=== PATIENT | female | born 1985 | race Caucasian/White ===

== ENCOUNTER 2019-08-07 11:10 | Outpatient (CLI) | payer OTHER, SELFPAY ==
--- NOTE | ~2019-08-07 | XR_ITS ---
XR scoliosis survey DATE: 08/07/2019 11:53 INDICATION: Scoliosis deformity of spine TECHNIQUE: Standing AP and lateral views of the spine; breast chauhan. COMPARISON: None FINDINGS: There is 10 degrees levoscoliosis measured from T8 to L1. There is 10 degrees dextroscoliosis measured from L1 to L5. The right femoral head is 4 mm higher than the left femoral head. No fracture or dislocation or bone destruction. The thoracic and lumbar pedicles are intact. The sacr oiliac joints appear normal. IMPRESSION: There is 10 degrees levoscoliosis measured from T8 to L1. There is 10 degrees dextroscoliosis measured from L1 to L5. The right femoral head is 4 mm higher than the left femoral head. Reviewed, dictated and finalized at [facility]. Reviewed, dictated and finalized at location [facility].
== END 2019-08-07 11:11 | disposition home or self-care (01) ==
LOC: ANHIMG 11:18
PROVIDERS: PCP Physician Assistant; Visit Provider Physician Assistant
DX: M41.84 Other forms of scoliosis, thoracic region (principal); M41.86 Other forms of scoliosis, lumbar region; M21.751 Unequal limb length (acquired), right femur
CPT/HCPCS: 72082

== ENCOUNTER 2020-11-10 21:21 | Emergency (ER) | payer OTHER, SELFPAY ==
--- NOTE | ~2020-11-10 | US_ITS ---
US OB <= 14 weeks fetus DATE: 11/10/2020 23:58 INDICATION: Abdominal pain in gravid patient TECHNIQUE: Real-time imaging and Doppler analysis COMPARISON: None FINDINGS: The uterus measures 9.3 cm height, 5. Centimeters anteroposterior and 6.4 cm transverse dim ension. Live jesus intrauterine gestation, with normal-appearing gestational sac with normal surrounding hyperechogenicity consistent with decidual reaction. Normal amount of amniotic fluid. Yolk sac and fe caleb pole are detected. heart rate of 141 bpm. Mean sac diameter 2.23 cm, consistent with 7 weeks estimated gestational age. [place]-rump length of 1.37 cm is consistent with 7 weeks 4 days +/- 5 days estimated gestational age w ith ISMA of 06/25/2021. The left ovary is not visualized. The right ovary measures 3.0 x 1.9 x 1.9 cm, with an approximately 1.6 cm cyst. No free fluid in the pelvis. IMPRESSION: Normal intrauterine gestation Estimated gestational age of 7 weeks 4 days +/- 5 days; ISMA is 06/25/2021 Reviewed, dictated and finalized at [facility]. Reviewed, dictated and finalized at location [facility].
[2020-11-10 21:26] VITALS: BP 123/80; PULSE 98; RESP 16; TEMP 36.8; O2SAT 98
--- NOTE | 2020-11-10 21:58 | ED.FEMALEGU ---
HPI - Female Genitourinary General Chief complaint: Urogenital-Female Stated complaint: ovary pain, needs test Time Seen by Provider: 11/10/20 21:36 Source: patient and RN notes reviewed Mode of arrival: ambulatory Limitations: no limitations History of Present Illness HPI Narrative: This is a 34 year old female who presents for evaluation of lower abdominal pain. She reports pain for 2 days and her pain is intermittent. She states she took a test at home but she wants to confirm her . Her last menstrual period was in 09/28/20 and she is late. She reports intermittent watery brown discharge for 2 weeks. She denies vomiting, fever, chills. She has noticed some nausea and breast tenderness . Her blood type is ABnegative Related Data Home Medications Medication Instructions Recorded Confirmed cholecalciferol (vitamin D3) 125 mcg PO DAILY 11/10/20 [Dialyvite Vitamin D] gabapentin 11/10/20 Allergies Allergy/AdvReac Type Severity Reaction Status Date / Time No Known Allergies Allergy Unverified 11/10/20 21:31 Review of Systems Review of Systems: All systems reviewed & are unremarkable except as noted in HPI and below PMFSH Past Medical History Medical History (Updated 11/11/20 @ 00:33 by Emma Valenzuela MD) Multiple sclerosis Surgical History Surgical History (Updated 11/11/20 @ 00:30 by Emma Valenzuela MD) No pertinent past surgical history Social History Social History (Updated 11/11/20 @ 00:30 by mEma Valenzuela MD) Smoking status: Current every day smoker Gender identity (if verbalized by the patient): Female Sexual Orientation (if Verbalized by the Patient): Straight or Heterosexual Exam Narrative: Exam Narrative: GENERAL: Well-appearing, well-nourished, and in no acute distress. HEAD: Normocephalic, atraumatic EYES: PERRLA and EOMI, conjunctiva clear without discharge THROAT:Mucous membranes moist, Oropharynx normal without erythema, exudate, peritonsillar swelling or fluctuance NECK: Supple, without lymphadenopathy or mass RESPIRATORY: No respiratory distress, Airway patent, Respirations non-labored, Clear to auscultation without rales, rhonchi or wheeze HEART: Regular rate and rhythm. No murmur heard. Normal peripheral pulses. ABDOMEN: Soft, suprapubic tenderness, nondistended, normal active bowel sounds. No masses. No rebound or guarding, No organomegaly. EXTREMITIES: No edema, normal strength with full range of motion. SKIN: Warm, dry, normal color without rash NEURO: Alert and oriented x3. CN 2-12 grossly intact. No focal deficits. PSYCH: Normal mood and affect. 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 She will be given dose of rhogam before discharge. Date: 11/11/20 Time: 00:31 Vital Signs Vital signs: Vital Signs Temperature 98.3 F 11/10/20 21:26 Pulse Rate 98 11/10/20 21:26 Respiratory Rate 16 11/10/20 21:26 Blood Pressure 123/80 11/10/20 21:26 Pulse Oximetry 98 11/10/20 21:26 Temperature 98.3 F 11/10/20 21:26 Pulse Rate 94 11/10/20 22:20 Respiratory Rate 16 11/10/20 21:26 Blood Pressure 103/75 11/10/20 22:20 Pulse Oximetry 98 11/10/20 21:26 MDM - Female Genitourinary Lab Data Attestation: I reviewed the patient's lab results. Result diagrams: 11/10/20 22:16 Labs: Lab Results 11/10/20 11/10/20 11/10/20 Range/Units 22:16 22:16 22:16 WBC 6.7 (4.5-10.0) K/mm3 RBC 4.03 L (4.2-5.4) M/mm3 Hgb 12.6 (12.0-15.0) g/dL Hct 37.7 (37.0-47.0) % MCV 93.5 (80-100) fl MCH 31.3 (26-34) pg MCHC 33.4 (32-36) g/dl RDW 12.2 (11.5-14.5) % Plt Count 154 (150-375) k/mm3 MPV 12.4 H (7.4-10.4) fl Immature
[2020-11-10 22:18] VITALS: BP 103/55; PULSE 85
[2020-11-10 22:20] VITALS: BP 103/75; BP 108/67; PULSE 92; PULSE 94
[2020-11-10 22:24] LABS: Basophils Percent Auto 0.3 % (0.2-1.2); Eosinophils Absolute Auto 0.2 K/mm3 (0-0.3); Eosinophils Percent Auto 2.9 % (0-4.4); Hematocrit 37.7 % (37.0-47.0); Hemoglobin 12.6 g/dL (12.0-15.0); Immature Granulocyte Absolute 0.02 K/mm3 (0.00-0.031); Immature Granulocyte Percent A 0.3 % (0-0.5); Lymphocytes Absolute Auto 1.79 K/mm3 (0.9-3.2); Lymphocytes Percent Auto 26.9 % (18.3-44.2); Mean Corpuscular HGB Conc 33.4 g/dl (32-36); Mean Corpuscular Hemoglobin 31.3 pg (26-34); Mean Corpuscular Volume 93.5 fl (80-100); Mean Platelet Volume 12.4 fl (7.4-10.4); Monocytes Absolute Auto 0.5 K/mm3 (0.1-0.6); Monocytes Percent Auto 7.1 % (2.6-8.5); Neutrophils Absolute Auto 4.2 K/mm3 (1.3-6.7); Neutrophils Percent Auto 62.5 % (45.5-73.1); Platelet Count Result 154 k/mm3 (150-375); Red Blood Count 4.03 M/mm3 (4.2-5.4); Red Cell Distribution Width 12.2 % (11.5-14.5); White Blood Count 6.7 K/mm3 (4.5-10.0)
[2020-11-10 22:26] LABS: Add Urine Microscopic? NO; Appearance Urine Clear (Clear); Bilirubin Urine Negative (Negative); Blood Urine Negative (Negative); Color Urine Colorless (Yellow); Glucose Urine UA Negative (Negative); Ketones Urine Negative (Negative); Leukocyte Esterase Ur Negative LEU/UL (Negative); Nitrate Urine Negative (Negative); Protein Urine Negative (Negative); Specific Grav Ur 1.003 (1.001-1.035); Urobilinogen Urine Negative mg/dL (<2.0)
[2020-11-11 00:32] VITALS: BP 103/75; PULSE 94; RESP 16; TEMP 36.8; O2SAT 98
== END 2020-11-11 00:39 | disposition home or self-care (01) ==
PROVIDERS: Emergency Provider General Practice; PCP Physician Assistant
DX: O26.891 Other specified pregnancy related conditions, first trimester (principal); R10.30 Lower abdominal pain, unspecified; O99.351 Diseases of the nervous system complicating pregnancy, first trimester; G35 Multiple sclerosis; Z3A.01 Less than 8 weeks gestation of pregnancy
CPT/HCPCS: 36415; 76801; 81003; 81025; 84702; 85025; 85461; 90384; 96372; 99284; J2790

== ENCOUNTER → 2021-02-28 03:03 | Outpatient (CLI) | payer OTHER, SELFPAY ==
[2021-02-28 19:14] LABS: SARS-CoV-2 RNA PCR Negative
== END ==
PROVIDERS: Visit Provider Obstetrics & Gynecology
DX: Z20.822 Contact with and (suspected) exposure to COVID-19 (principal)
CPT/HCPCS: C9803; U0003; U0005

== ENCOUNTER 2021-04-14 09:29 | Outpatient (RCR) | payer OTHER, SELFPAY ==
[2021-04-14] MEDS: RHO(D) IMMUNE GLOBULIN 300 MCG/2 ML SYRINGE IM (13:15)
== END 2021-04-14 09:31 | disposition home or self-care (01) ==
LOC: ANHLAB 09:29
PROVIDERS: Visit Provider Obstetrics & Gynecology
DX: Z29.13 Encounter for prophylactic Rho(D) immune globulin (principal); O36.0190 Maternal care for anti-D [Rh] antibodies, unspecified trimester, not applicable or unspecified; Z3A.00 Weeks of gestation of pregnancy not specified
CPT/HCPCS: 36415; 85461; 90384; 96372; J2790

== ENCOUNTER → 2021-04-26 02:41 | Outpatient (CLI) | payer OTHER, SELFPAY ==
[2021-04-26 17:58] LABS: SARS-CoV-2 RNA PCR Positive
== END ==
PROVIDERS: Visit Provider Obstetrics & Gynecology
DX: U07.1 COVID-19 (principal)
CPT/HCPCS: C9803; U0003; U0005

== ENCOUNTER → 2021-05-04 01:36 | Outpatient (CLI) | payer OTHER, SELFPAY ==
[2021-05-04 19:33] LABS: SARS-CoV-2 RNA PCR Positive
== END ==
PROVIDERS: PCP Obstetrics & Gynecology; Visit Provider Obstetrics & Gynecology
DX: U07.1 COVID-19 (principal)
CPT/HCPCS: C9803; U0003; U0005

== ENCOUNTER → 2021-05-10 03:14 | Outpatient (CLI) | payer OTHER, SELFPAY ==
[2021-05-10 18:29] LABS: SARS-CoV-2 RNA PCR Positive
== END ==
PROVIDERS: PCP Obstetrics & Gynecology; Visit Provider Obstetrics & Gynecology
DX: U07.1 COVID-19 (principal)
CPT/HCPCS: C9803; U0003; U0005

== ENCOUNTER 2021-06-24 11:05 | Outpatient (CLI) | payer OTHER, SELFPAY ==
[2021-06-24 11:55] LABS: Hematocrit 33.6 % (37.0-47.0); Hemoglobin 11.4 g/dL (12.0-15.0); Immature Platelet Fraction Pct 15.1 % (0.9-11.2); Mean Corpuscular HGB Conc 33.9 g/dl (32-36); Mean Corpuscular Hemoglobin 34.4 pg (26-34); Mean Corpuscular Volume 101.5 fl (80-100); Mean Platelet Volume 11.7 fl (7.4-10.4); Platelet Count Result 126 k/mm3 (150-375); Red Blood Count 3.31 M/mm3 (4.2-5.4); Red Cell Distribution Width 13.9 % (11.5-14.5); White Blood Count 6.9 K/mm3 (4.5-10.0)
[2021-06-26 06:08] LABS: Rapid Plasma Reagin Non-Reactive (NonReactive)
== END 2021-06-24 11:06 | disposition home or self-care (01) ==
LOC: ANHLAB 11:08
PROVIDERS: PCP Physician Assistant; Visit Provider Obstetrics & Gynecology
DX: Z34.93 Encounter for supervision of normal pregnancy, unspecified, third trimester (principal); Z3A.00 Weeks of gestation of pregnancy not specified
CPT/HCPCS: 36415; 85027; 85055; 86592; 86850; 86880; 86900; 86901; 86902

== ENCOUNTER 2021-06-26 04:56 | Inpatient (IN) | payer OTHER, SELFPAY ==
--- NOTE | 2021-06-05 13:02 | PC.NURSE ---
Verified with OR schedule and patient --C/S on 06/26/21 at 0730 Patient given requisition fo lab draw on 06/24/21
--- NOTE | 2021-06-05 13:46 | PC.NURSE ---
Dr Rodarte called at 1310--no one available to talk with patient--told to ask patient if she has any images to bring ,who her doctor is and if she has had any surgeries due to the MS and if she knows where her lesions are. Talked with patient --patient states she has a disc with MRI images on it--Instructed to bring it in with her when she comes in to OB. Patient states she was diagnosed in Jun 2020,States her MS doctor is Dr Mervin Colón at [facility]. Patient states most of her lesions are in her brain, but she has one on her spine in cervical region of spine. Patient states she has not had any surgeries.
[2021-06-26] VITALS (43 sets, daily range): BP systolic 82–117; BP diastolic 47–72; PULSE 62–107; RESP 12–18; TEMP 36.3–37; O2SAT 99–100; BMI 24.8
--- OUTSIDE RECORDS SUMMARY | 2021-06-26 05:01 | XMS_ITS ---
:1985 Author Care Team Providers Name Role Phone Clarisa Gill Primary Care Provider Unavailable Allergies Code Code System Name Reaction Severity Status Onset NKDA ? Notes: NO KNOWN ALLERGIES (Activ e) Comment: Location: [facility]; Medications Name Status Start Date Stop Date ? ? nitrofurantoin Completed ? 02/14/2021 monohydrate/macrocrystals 100 mg capsule Active ? Not available valacyclovir 1 gram tablet Active ? Not a vailable Problems Name Status Onset Date Source ? Infection Screening Unknown 12/23/2017 History Syphilis Test Finding Unknown 12/23/2017 History Superficial Pain on [place] Unknown 03/03/2018 History Scar Conditions and Fibrosis of Skin Unknown 03/03/2018 History Contraception Care Management Unknown 03/03/2018 Hi story Hypertrophy of Clitoris Unknown 11/17/2018 History Sexual Function Painful Unknown 11/17/[address] Concept Unknown 01/27/[address] Concept Unknown 01/27/2019 History Multiple Sclerosis Active 12/07/2020 ? Repair of Vaginal Tear Active 12/07/2020 ? Active 12/19/2020 ? Genital Herpes Simplex Type 1 Active ? ? Infection Laceration of Vagina Active ? ? Sterilization Requested Active ? ? Blood Group a Rh(D) Negative Active ? ? Covid-19 Active ? ? Notes: Level II u/s 03/10 1:00 u /s growth & complete anatomy Procedures
--- OUTSIDE RECORDS SUMMARY | 2021-06-26 05:01 | XMS_ITS | Encounter Summary ---
:1985 Author Reason for Visit NST [id number] EDC 07/01/2021 Assessment and Plan 1. Multiple sclerosis ? non-stress test Discussion Note: None recorded.Patient educational handouts: No information available. Plan of Care Reminders Provider Appointments Surg Post 07/03/2021 Clarisa Gill, Whit 2:30PM Lab None ? ? recorded. Referral None ? ? recorded. Procedures None ? ? recorded. Surgeries None ? ? recorded. Imaging 06/22/2021 [place] Non-stress Test Medications Name Start Date ? ? ? valacyclovir 1 gram tablet ? Take 1 tablet every day by oral route. Medications Administered None recorded. Vitals Height Blood Pressure 5 ft 7 in 122/71 mm[Hg] Results Lab Results None recorded. Allergies Code Code System Name Reaction Severity Onset NKDA ? ? ? Notes: NO KNOWN ALLERGIES (Activ e) Comment: Location: [facility]; Problems Name Status Onset Date Source ? Multiple Sclerosis Active 12/07/2020 ? Repair of Vaginal Tear Active 12/07/2020 ?
--- OUTSIDE RECORDS SUMMARY | 2021-06-26 05:01 | XMS_ITS | Encounter Summary ---
:1985 Author Reason for Visit None recorded. Assessment and Plan 1. Disease of nervous system com plicating , childbirth and puerperium ? non-stress test Discussion Note: None recorded.Patient educational handouts: No information available. Plan of Care Reminders Provider Appointments Surg Post 07/03/2021 [place] 2:30PM Lab None ? ? recorded. Referral None ? ? recorded. Procedures None ? ? recorded. Surgeries None ? ? recorded. Imaging 06/19/2021 [place] Non-stress Test Medications Name Start Date ? ? ? valacyclovir 1 gram tablet ? Take 1 tablet every day by oral route. Medications Administered None recorded. Vitals None recorded. Results Lab Results None recorded. Allergies Code Code System Name Reaction Severity Onset NKDA ? ? ? Notes: NO KNOWN ALLERGIES (Activ e) Comment: Location: [facility]; Problems Name Status Onset Date Source ? Multiple Sclerosis Active 12/07/2020 ? Repair of Vaginal Tear Active 12/07/2020 ? Active 12/19/2020
--- OUTSIDE RECORDS SUMMARY | 2021-06-26 05:01 | XMS_ITS | Encounter Summary ---
:1985 Author Reason for Visit OB visit Assessment and Plan 1. Laceration of vagina 2. COVID-19 3. Multiple sclerosis Discussion Note: None recorded.Patient educational handouts: No information available. Plan of Care Reminders Provider Appointments Surg Post 07/03/2021 Clarisa sanchez Op 2:30PM MD Bridget Lab None ? ? recorded. Referral None ? ? recorded. Procedures None ? ? recorded. Surgeries None ? ? recorded. Imaging None ? ? recorded. Medications Name Start Date ? ? ? valacyclovir 1 gram tablet ? Take 1 tablet every day by oral route. Medications Administered None recorded. Vitals Height Weight BMI Blood Pressure 5 ft 7 in 160 lbs 25.1 kg/m2 108/73 mm[Hg] Results Lab Results None recorded. Allergies Code Code System Name Reaction Severity Onset NKDA ? ? ? Notes: NO KNOWN ALLERGIES (Activ e) Comment: Location: [facility]; Problems Name Status Onset Date Source ? Multiple Sclerosis Active 12/07/2020 ? Repair of Vaginal Tear Active 12/07/2020 ?
--- OUTSIDE RECORDS SUMMARY | 2021-06-26 05:02 | XMS_ITS | Encounter Summary ---
:1985 Author Reason for Visit OB visit Assessment and Plan 1. Genital Herpes simplex type 1 infection 2. Multiple sclerosis Discussion Note: None recorded.Patient educational [...] BMI Blood Pressure 5 ft 7 in 152 lbs 23.8 kg/m2 111/64 mm[Hg] Results Lab Results None recorded. Allergies Code Code System Name Reaction Severity Onset NKDA ? ? ? Notes: NO KNOWN ALLERGIES (Activ e) Comment: Location: [facility]; Problems Name Status Onset Date Source ? Multiple Sclerosis Active 12/07/2020 ? Repair of Vaginal Tear Active 12/07/2020 ? Active 12/19/2020
--- OUTSIDE RECORDS SUMMARY | 2021-06-26 05:02 | XMS_ITS | Encounter Summary ---
:1985 Author Reason for Visit None recorded. Assessment and Plan 1. 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 non-stress test Discussion Note: None recorded.Patient educational handouts: No information available. Plan of Care Reminders Provider Appointments Surg Post 07/03/2021 Clarisa Gill, Whit 2:30PM Lab None ? ? recorded. Referral None ? ? recorded. Procedures None ? ? recorded. Surgeries None ? ? recorded. Imaging 05/22/2021 [place] Non-stress Test Medications Name Start Date ? ? ? valacyclovir 1 gram tablet ? Take 1 tablet every day by oral route. Medications Administered None recorded. Vitals None recorded. Results Lab Results None recorded. Allergies Code Code System Name Reaction Severity Onset NKDA ? ? ? Notes: NO KNOWN ALLERGIES (Activ e) Comment: Location: [facility]; Problems Name Status Onset Date Source ? Multiple Sclerosis Active 12/07/2020 ? Repair of Vaginal Tear Active 12/07/2020 ? Active 12/19/2020 ? 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
--- OUTSIDE RECORDS SUMMARY | 2021-06-26 05:02 | XMS_ITS | Encounter Summary ---
:1985 Author Reason for Visit OB visit Assessment and Plan Assessment Note Patient is ___weeks . Discu ssed plan. 1. Routine care Discussion Note: None recorded.Patient educational handouts: No [...] BMI Blood Pressure 5 ft 7 in 159 lbs 24.9 kg/m2 112/70 mm[Hg] Results Lab Results None recorded. Allergies Code Code System Name Reaction Severity Onset NKDA ? ? ? Notes: NO KNOWN ALLERGIES (Activ e) Comment: Location: [facility]; Problems Name Status Onset Date Source ? Multiple Sclerosis Active 12/07/2020 ? Repair of Vaginal Tear Active
--- OUTSIDE RECORDS SUMMARY | 2021-06-26 05:02 | XMS_ITS | Encounter Summary ---
:1985 Author Reason for Visit None recorded. Assessment and Plan 1. Multiple sclerosis ? non-stress test Discussion Note: None recorded.Patient educational handouts: No information available. Plan of Care Reminders Provider Appointments Surg Post 07/03/2021 Clarisa Gill, Whit 2:30PM Lab None ? ? recorded. Referral None ? ? recorded. Procedures None ? ? recorded. Surgeries None ? ? recorded. Imaging 05/25/2021 [place] Non-stress Test Medications Name Start Date ? ? ? valacyclovir 1 gram tablet ? Take 1 tablet every day by oral route. Medications Administered None recorded. Vitals Blood Pressure 109/67 mm[Hg] Results Lab Results None recorded. Allergies Code Code System Name Reaction Severity Onset NKDA ? ? ? Notes: NO KNOWN ALLERGIES (Activ e) Comment: Location: [facility]; Problems Name Status Onset Date Source ? Multiple Sclerosis Active 12/07/2020 ? Repair of Vaginal Tear Active 12/07/2020 ? Active
--- OUTSIDE RECORDS SUMMARY | 2021-06-26 05:02 | XMS_ITS | Encounter Summary ---
[...] recorded. Surgeries None ? ? recorded. Imaging 06/08/2021 [place] Non-stress Test Medications Name Start Date ? ? ? valacyclovir 1 gram tablet ? Take 1 tablet every day by oral route. Medications Administered None recorded. Vitals None recorded. Results Lab Results None recorded. Allergies Code Code System Name Reaction Severity Onset NKDA ? ? ? Notes: NO KNOWN ALLERGIES (Activ e) Comment: Location: [facility]; Problems Name Status Onset Date Source ? Multiple Sclerosis Active 12/07/2020 ? Repair of Vaginal Tear Active 12/07/2020 ? Active 12/19/2020
--- OUTSIDE RECORDS SUMMARY | 2021-06-26 05:02 | XMS_ITS | Encounter Summary ---
:1985 Author Reason for Visit None recorded. Assessment and Plan 1. 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 US, obstetric, follow-up Discussion Note: None recorded.Patient educational handouts: No information available. Plan of Care Reminders Provider Appointments Surg Post 07/03/2021 Clarisa Gill, Whit 2:30PM Lab None ? ? recorded. Referral None ? ? recorded. Procedures None ? ? recorded. Surgeries None ? ? recorded. Imaging US, 05/22/2021 [place] Obstetric, Follow-up Medications Name Start Date ? ? ? valacyclovir 1 gram tablet ? Take 1 tablet every day by oral route. Medications Administered None recorded. Vitals None recorded. Results Lab Results None recorded. Allergies Code Code System Name Reaction Severity Onset NKDA ? ? ? Notes: NO KNOWN ALLERGIES (Activ e) Comment: Location: [facility]; Problems Name Status Onset Date Source ? Multiple Sclerosis Active 12/07/2020 ? Repair of Vaginal Tear Active 12/07/2020 ? Active 12/19/2020 ? Genital Herpes Simplex Type 1 Infection Active
--- OUTSIDE RECORDS SUMMARY | 2021-06-26 05:02 | XMS_ITS | Encounter Summary ---
:1985 Author Reason for Visit OB visit Assessment and Plan 1. Routine care 2. Genital Herpes simplex type 1 infection ? Valtrex 1 gram tablet Discussion Note: None recorded.Patient educational handouts: No [...] BMI Blood Pressure 5 ft 7 in 157 lbs 24.6 kg/m2 106/67 mm[Hg] Results Lab Results None recorded. Allergies Code Code System Name Reaction Severity Onset NKDA ? ? ? Notes: NO KNOWN ALLERGIES (Activ e) Comment: Location: [facility]; Problems Name Status Onset Date Source ? Multiple Sclerosis Active 12/07/2020 ? Repair of Vaginal Tear Active
--- OUTSIDE RECORDS SUMMARY | 2021-06-26 05:02 | XMS_ITS | Encounter Summary ---
[...] recorded. Surgeries None ? ? recorded. Imaging 05/15/2021 [place] Non-stress Test Medications Name Start Date ? ? ? valacyclovir 1 gram tablet ? Take 1 tablet every day by oral route. Medications Administered None recorded. Vitals None recorded. Results Lab Results None recorded. Allergies Code Code System Name Reaction Severity Onset NKDA ? ? ? Notes: NO KNOWN ALLERGIES (Activ e) Comment: Location: [facility]; Problems Name Status Onset Date Source ? Multiple Sclerosis Active 12/07/2020 ? Repair of Vaginal Tear Active 12/07/2020 ? Active 12/19/2020 ? 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
--- OUTSIDE RECORDS SUMMARY | 2021-06-26 05:02 | XMS_ITS | Encounter Summary ---
[...] recorded. Surgeries None ? ? recorded. Imaging 06/12/2021 [place] Non-stress Test Medications Name Start Date ? ? ? valacyclovir 1 gram tablet ? Take 1 tablet every day by oral route. Medications Administered None recorded. Vitals None recorded. Results Lab Results None recorded. Allergies Code Code System Name Reaction Severity Onset NKDA ? ? ? Notes: NO KNOWN ALLERGIES (Activ e) Comment: Location: [facility]; Problems Name Status Onset Date Source ? Multiple Sclerosis Active 12/07/2020 ? Repair of Vaginal Tear Active 12/07/2020 ? Active 12/19/2020
--- OUTSIDE RECORDS SUMMARY | 2021-06-26 05:02 | XMS_ITS | Encounter Summary ---
[...] recorded. Surgeries None ? ? recorded. Imaging 06/05/2021 [place] Non-stress Test Medications Name Start Date ? ? ? valacyclovir 1 gram tablet ? Take 1 tablet every day by oral route. Medications Administered None recorded. Vitals Blood Pressure 111/66 mm[Hg] Results Lab Results None recorded. Allergies Code Code System Name Reaction Severity Onset NKDA ? ? ? Notes: NO KNOWN ALLERGIES (Activ e) Comment: Location: [facility]; Problems Name Status Onset Date Source ? Multiple Sclerosis Active 12/07/2020 ? Repair of Vaginal Tear Active 12/07/2020 ? Active
--- OUTSIDE RECORDS SUMMARY | 2021-06-26 05:02 | XMS_ITS | Encounter Summary ---
[...] recorded. Surgeries None ? ? recorded. Imaging 05/18/2021 [place] Non-stress Test Medications Name Start Date ? ? ? valacyclovir 1 gram tablet ? Take 1 tablet every day by oral route. Medications Administered None recorded. Vitals Blood Pressure 105/62 mm[Hg] Results Lab Results None recorded. Allergies Code Code System Name Reaction Severity Onset NKDA ? ? ? Notes: NO KNOWN ALLERGIES (Activ e) Comment: Location: [facility]; Problems Name Status Onset Date Source ? Multiple Sclerosis Active 12/07/2020 ? Repair of Vaginal Tear Active 12/07/2020 ?
--- OUTSIDE RECORDS SUMMARY | 2021-06-26 05:02 | XMS_ITS | Encounter Summary ---
:1985 Author Reason for Visit OB visit Assessment and Plan 1. COVID-19 2. Laceration of vagina 3. Multiple sclerosis 4. Sterilization requested Discussion Note: None recorded.Patient educational handouts: No [...] BMI Blood Pressure 5 ft 7 in 151 lbs 23.6 kg/m2 109/69 mm[Hg] Results Lab Results None recorded. Allergies Code Code System Name Reaction Severity Onset NKDA ? ? ? Notes: NO KNOWN ALLERGIES (Activ e) Comment: Location: [facility]; Problems Name Status Onset Date Source ? Multiple Sclerosis Active 12/07/2020 ?
--- OUTSIDE RECORDS SUMMARY | 2021-06-26 05:02 | XMS_ITS | Encounter Summary ---
:1985 Author Reason for Visit OB visit Assessment and Plan 1. Multiple sclerosis 2. Genital Herpes simplex type 1 infection 3. COVID-19 Discussion Note: None recorded.Patient educational handouts: No information available. Plan of Care Reminders Provider Appointments Surg Post 07/03/2021 Clarisa Peña here Op 2:30PM MD Bridget Lab None ? ? recorded. Referral None ? ? recorded. Procedures None ? ? recorded. Surgeries None ? ? recorded. Imaging None ? ? recorded. Medications Name Start Date ? ? ? valacyclovir 1 gram tablet ? Take 1 tablet every day by oral route. Medications Administered None recorded. Vitals Height Weight BMI Blood Pressure 5 ft 7 in 162 lbs 25.4 kg/m2 115/70 mm[Hg] Results Lab Results None recorded. Allergies Code Code System Name Reaction Severity Onset NKDA ? ? ? Notes: NO KNOWN ALLERGIES (Activ e) Comment: Location: [facility]; Problems Name Status Onset Date Source ? Multiple Sclerosis Active 12/07/2020 ? Repair of Vaginal Tear Active 12/07/2020 ?
--- OUTSIDE RECORDS SUMMARY | 2021-06-26 05:02 | XMS_ITS | Encounter Summary ---
:1985 Author Reason for Visit None recorded. Assessment and Plan 1. Pre-existing maternal disease complicating ? US, obstetric, follow-up Discussion Note: None recorded.Patient educational handouts: No information available. Plan of Care Reminders Provider Appointments Surg Post 07/03/2021 [place] 2:30PM Lab None ? ? recorded. Referral None ? ? recorded. Procedures None ? ? recorded. Surgeries None ? ? recorded. Imaging US, 06/12/2021 [place] Obstetric, Follow-up Medications Name Start Date ? ? ? valacyclovir 1 gram tablet ? Take 1 tablet every day by oral route. Medications Administered None recorded. Vitals None recorded. Results Lab Results None recorded. Allergies Code Code System Name Reaction Severity Onset NKDA ? ? ? Notes: NO KNOWN ALLERGIES (Activ e) Comment: Location: [facility]; Problems Name Status Onset Date Source ? Multiple Sclerosis Active 12/07/2020 ? Repair of Vaginal Tear Active 12/07/2020 ? Active 12/19/2020 ? Genital Herpes Simplex Type 1 Infe
--- OUTSIDE RECORDS SUMMARY | 2021-06-26 05:02 | XMS_ITS | Encounter Summary ---
[...] recorded. Surgeries None ? ? recorded. Imaging 06/01/2021 [place] Non-stress Test Medications Name Start Date ? ? ? valacyclovir 1 gram tablet ? Take 1 tablet every day by oral route. Medications Administered None recorded. Vitals None recorded. Results Lab Results None recorded. Allergies Code Code System Name Reaction Severity Onset NKDA ? ? ? Notes: NO KNOWN ALLERGIES (Activ e) Comment: Location: [facility]; Problems Name Status Onset Date Source ? Multiple Sclerosis Active 12/07/2020 ? Repair of Vaginal Tear Active 12/07/2020 ? Active 12/19/2020 ? 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 ?
--- OUTSIDE RECORDS SUMMARY | 2021-06-26 05:02 | XMS_ITS | Encounter Summary ---
:1985 Author Reason for Visit NST [id number] EDC 07/01/2021 for MS Assessment and Plan 1. Multiple sclerosis ? non-stress test Discussion Note: None recorded.Patient educational handouts: No information available. Plan of Care Reminders Provider Appointments Surg Post 07/03/2021 Clarisa Gill, Whit 2:30PM Lab None ? ? recorded. Referral None ? ? recorded. Procedures None ? ? recorded. Surgeries None ? ? recorded. Imaging 05/29/2021 [place] Non-stress Test Medications Name Start Date ? ? ? valacyclovir 1 gram tablet ? Take 1 tablet every day by oral route. Medications Administered None recorded. Vitals None recorded. Results Lab Results None recorded. Allergies Code Code System Name Reaction Severity Onset NKDA ? ? ? Notes: NO KNOWN ALLERGIES (Activ e) Comment: Location: [facility]; Problems Name Status Onset Date Source ? Multiple Sclerosis Active 12/07/2020 ? Repair of Vaginal Tear Active 12/07/2020 ? Active 12/19/2020 ? 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
--- OUTSIDE RECORDS SUMMARY | 2021-06-26 05:02 | XMS_ITS | Encounter Summary ---
[...] recorded. Surgeries None ? ? recorded. Imaging 06/15/2021 [place] Non-stress Test Medications Name Start Date ? ? ? valacyclovir 1 gram tablet ? Take 1 tablet every day by oral route. Medications Administered None recorded. Vitals Blood Pressure 114/70 mm[Hg] Results Lab Results None recorded. Allergies Code Code System Name Reaction Severity Onset NKDA ? ? ? Notes: NO KNOWN ALLERGIES (Activ e) Comment: Location: [facility]; Problems Name Status Onset Date Source ? Multiple Sclerosis Active 12/07/2020 ? [place]
--- OUTSIDE RECORDS SUMMARY | 2021-06-26 05:03 | XMS_ITS | Encounter Summary ---
:1985 Author Reason for Visit OB visit Assessment and Plan 1. History of third degree perin eal laceration ? section (SURG) 2. Sterilization requested ? salpingectomy (SURG) Discussion Note: None recorded.Patient educational handouts: No information available. Plan of Care Reminders Provider Appointments Surg Post Op Am y Jerrica 07/03/2021 MD Bridget 2:30PM Lab None recorded. ? ? Referral None recorded. ? ? Procedures None recorded. ? ? Surgeries Section En Surgery (SURG) 06/26/2021 Bridget ? Salpingectomy And erson Surgery (SURG) 06/26/2021 Bridget Imaging None recorded. ? ? Medications Name Start Date ? ? ? valacyclovir 1 gram tablet ? Take 1 tablet every day by oral route. Medications Administered None recorded. Vitals Height Weight BMI Blood Pressure 5 ft 7 in 146 lbs 22.9 kg/m2 98/63 mm[Hg] Results Lab Results None recorded. Allergies Code Code System Name Reaction Severity Onset
--- OUTSIDE RECORDS SUMMARY | 2021-06-26 05:03 | XMS_ITS | Encounter Summary ---
:1985 Author Reason for Visit OB visit Assessment and Plan Assessment Note Patient is ___weeks . Discu ssed plan. 1. Herpes simplex ? Valtrex 1 gram tablet Discussion Note: [...] BMI Blood Pressure 5 ft 7 in 150 lbs 23.5 kg/m2 112/69 mm[Hg] Results Lab Results None recorded. Allergies Code Code System Name Reaction Severity Onset NKDA ? ? ? Notes: NO KNOWN ALLERGIES (Activ e) Comment: Location: [facility] [address]; Problems Name Status Onset Date Source ? Multiple Sclerosis Active
--- OUTSIDE RECORDS SUMMARY | 2021-06-26 05:03 | XMS_ITS | Encounter Summary ---
:1985 Author Reason for Visit None recorded. Assessment and Plan 1. Multiple sclerosis ? US, obstetric, biophysical profile + non-stress test ? US, obstetric, follow-up Discussion Note: None recorded.Patient educational handouts: No information available. Plan of Care Reminders Provider Appointments Surg Post Op Am y Jerrcia 07/03/2021 MD Bridget 2:30PM Lab None recorded. ? ? Referral None recorded. ? ? Procedures None recorded. ? ? Surgeries None recorded. ? ? Imaging US, Obstetric, Vance baca Biophysical Profile + 05/08/2021 Non-stress Test ? US, Obstetric, Vance baca Follow-up 05/08/2021 Medications Name Start Date ? ? ? valacyclovir 1 gram tablet ? Take 1 tablet every day by oral route. Medications Administered None recorded. Vitals None recorded. Results Lab Results None recorded. Allergies Code Code System Name Reaction Severity Onset NKDA ? ? ? Notes: NO KNOWN ALLERGIES (Activ e) Comment: Location: [facility]
--- OUTSIDE RECORDS SUMMARY | 2021-06-26 05:03 | XMS_ITS | Encounter Summary ---
[...] recorded. Surgeries None ? ? recorded. Imaging 05/11/2021 [place] Non-stress Test Medications Name Start Date ? ? ? valacyclovir 1 gram tablet ? Take 1 tablet every day by oral route. Medications Administered None recorded. Vitals Blood Pressure 111/69 mm[Hg] Results Lab Results None recorded. Allergies Code Code System Name Reaction Severity Onset NKDA ? ? ? Notes: NO KNOWN ALLERGIES (Activ e) Comment: Location: [facility]; Problems Name Status Onset Date Source ? Multiple Sclerosis Active 12/07/2020 ? Repair of Vaginal Tear Active 12/07/2020 ?
--- OUTSIDE RECORDS SUMMARY | 2021-06-26 05:03 | XMS_ITS | Encounter Summary ---
[...] recorded. Surgeries None ? ? recorded. Imaging 05/08/2021 [place] Non-stress Test Medications Name Start Date ? ? ? valacyclovir 1 gram tablet ? Take 1 tablet every day by oral route. Medications Administered None recorded. Vitals None recorded. Results Lab Results None recorded. Allergies Code Code System Name Reaction Severity Onset NKDA ? ? ? Notes: NO KNOWN ALLERGIES (Activ e) Comment: Location: [facility]; Problems Name Status Onset Date Source ? Multiple Sclerosis Active 12/07/2020 ? Repair of Vaginal Tear Active 12/07/2020 ? Active 12/19/2020 ? 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
--- NOTE | 2021-06-26 05:18 | LDADM ---
This patient, Allison Mejia, was admitted to Labor/Delivery/Recovery 120 on 06/26/21 at 04:56. Plans for labor, pain management and were discussed with patient. Patient/family oriented to hospital policies and general routines including ID bracelet, bed and alarms, visiting hours, pain management, procedures, bathroom and other care routines, personal items, smoking policy, room service/diet and guest tray routines, security routines, and visiting hours. Patient/Family are encouraged to report perceived risks to care and to ask questions if they do not understand what they are told or what they should do. See OBIX for further documentation.
[2021-06-26] MEDS: LACTATED RINGERS 1,000 ML 125 ML IV CONT (05:38)
--- NOTE | 2021-06-26 06:47 | WPDANESEPP ---
Anes - Eval Pre Procedure Procedure: Operation Date: 06/26/21 07:30 Proposed Procedures p Section with Bilateral Salpingectomy - Cathi Pedraza MD Date/Time: 06/26/21 06:47 Pre Op Diagnosis: C/S Patient Data Age: 35 Gender: F Height: 1.77 m Weight: 77.4 kg Last Vital Signs Temp 98.4 F 06/26/21 06:14 Pulse 98 06/26/21 05:38 BP 110/68 06/26/21 05:38 Allergies Allergy/AdvReac Type Severity Reaction Status Date / Time No Known Allergies Allergy Unverified 11/10/20 21:31 Home Medications Medication Instructions Recorded Confirmed Type valacyclovir [Valtrex] 500 mg PO DAILY 06/05/21 06/26/21 History [id number] fum-folic ac-om3 1 pkg PO DAILY 06/26/21 06/26/21 History [Daily ] Patient hx anesthesia problems: none Family hx anesthesia problems: none Results Review: All pre-operative results and documents have been reviewed as part of the pre-operative evaluation. PMF Past Medical History Medical History Multiple sclerosis and not yet delivered Smoker Surgical History Surgical History No pertinent past surgical history Previous section Family History Family History Grandparent Hypertension Grandparent Diabetes mellitus Ovarian cancer Father Alcohol abuse Mother Brain aneurysm Other Parents Social History Social History Smoking packs per day: 0.5 Smoking cigarettes per day: 10.0 Years smoked: 16 Smoking pack-years: 8.00 Smoking status: Current every day smoker Tobacco type: cigarettes Second hand tobacco smoke exposure: Yes Substance use: never Gender identity (if verbalized by the patient): Female Sexual Orientation (if Verbalized by the Patient): Straight or Heterosexual Spiritual care concerns: No Exam Day of Procedure 06/26/21 06:47 Patient weight: normal Airway: Mallampati scale class II Neurological: alert and oriented
--- NOTE | 2021-06-26 06:54 | WPDANESEFPP ---
Anes - Eval Final PreProcedure Day of Procedure 06/26/21 06:54 Patient weight: normal Heart: regular rate and rhythm Lungs: clear to auscultation Airway: Mallampati scale class II Neurological: alert and oriented Last oral intake: >/= 8 hours ASA classification: III Emergent: no Anesthetic plan: proceed Anesthesia type and monitoring: regional spinal and standard monitoring Results Review: All pre-operative results and documents have been reviewed as part of the pre-operative evaluation. Informed Consent: The patient's anesthetic plan and its attendant risks and benefits were discussed with the patient/family/POA. Questions were solicited and answers provided to the satisfaction of the patient/family/POA.
--- NOTE | 2021-06-26 06:56 | PM.IMHP ---
H&P: [facility] History of Present Illness Date/Time: 06/26/21 06:56This patient is multiparous female who presents for delivery. She had a complicated vaginal with 4th degree laceration that required subsequent revision. She has no complaints. She denies contractions, vaginal bleeding, or loss of fluid. She denies any headache, blurry vision, epigastric range. She denies any nausea, vomiting, fever, chills. Chief Complaint: Term Review of Systems Review of Systems: All systems reviewed & are unremarkable except as noted in HPI and below Constitutional: Constitutional: Denies chills, Denies fatigue, Denies fever(s) and Denies weakness Eyes: Eyes: Denies blurry vision, Denies change in vision, Denies loss of peripheral vision, Denies loss of vision, Denies other visual disturbances and Denies eye pain ENT: Denies vertigo, Denies dizziness, Denies hearing loss, Denies mouth pain, Denies nasal obstruction, Denies neck mass and Denies neck pain Cardiovascular: Cardiovascular: Denies chest pain, Denies diaphoresis, Denies syncope, Denies leg edema and Denies dyspnea Respiratory: Respiratory: Denies chest congestion, Denies cough, Denies hemoptysis, Denies dyspnea and Denies wheezing Gastrointestinal: Gastrointestinal: Denies abdominal pain, Denies constipation, Denies diarrhea, Denies nausea and Denies vomiting Genitourinary: Genitourinary: Denies hematuria, Denies change in libido, Denies nocturia, Denies genital lesions, Denies flank pain and Denies urinary urgency Musculoskeletal: Musculoskeletal: Denies abnormal gait, Denies back pain, Denies myalgias, Denies arthralgias, Denies joint swelling, Denies muscle weakness and Denies neck pain Integumentary/Breasts: Skin/Breast: Denies swelling, Denies breast pain, Denies breast mass, Denies dry skin, Denies nipple discharge, Denies unusual bruising and Denies jaundice Neurologic: Denies Neuro-related abnormal movements, Denies Abnormal speech present, Denies abnormal gait, Denies behavioral changes, Denies confusion, Denies vertigo, Denies dizziness, Denies syncope, Denies loss of vision, Denies memory loss, Denies convulsions and Denies weakness Psychiatric: Psychiatric: Denies abnormal sleep pattern, Denies behavioral changes, Denies change in libido, Denies confusion, Denies depression, Denies anhedonia and Denies memory loss Endocrine: Endocrine: Reports no additional endocrine complaints, Denies change in libido and Denies fatigue Hematologic/Lymphatic: Hematologic/Lymphatic: Reports no additional hematologic/lymphatic complaints Allergic/Immunologic: Allergic/Immunologic: Reports no additional allergic/immunologic complaints and Denies wheezing PMFSH Past Medical History Medical History Multiple sclerosis and not yet delivered Smoker Surgical History Surgical History No pertinent past surgical history Previous section Family History Family History Grandparent Hypertension Grandparent Diabetes mellitus Ovarian cancer Father Alcohol abuse Mother Brain aneurysm Other Parents Social History Social History Smoking packs per day: 0.5 Smoking cigarettes per day: 10.0 Years smoked: 16 Smoking pack-years: 8.00 Smoking status: Current every day smoker Tobacco type: cigarettes Second hand tobacco smoke exposure: Yes Substance use: never Gender identity (if verbalized by the patient): Female Sexual Orientation (if Verbalized by the Patient): Straight or Heterosexual Spiritual care concerns: No Meds Home Medications and Allergies Home Medications Medication Instructions Recorded Confirmed Type valacyclovir [Valtrex] 500 mg PO DAILY 06/05/21 06/26/21 History [id number] fum-folic ac-om3 1 pkg PO DAILY 06/26/21 06/26/21 History
[2021-06-26] MEDS: ceFAZolin 2 GM/D5W 50 ML 2 GM/50 ML BAG IVPB (07:01)
--- NOTE | 2021-06-26 07:52 | W.PM.PROC2 ---
Procedure Note - Detailed Date of Procedure 06/26/21 Pre-op Diagnosis Term , previous complicated 4 degree laceration. Unwanted fertility Post-op Diagnosis same Procedure Performed Low-transverse section, bilateral salpingectomy Surgeon Cathi Pedraza MD Anesthesia spinal Findings Normal gestational maternal anatomy, average size infant, normal Apgars. Description of Procedure The patient was taken the operating room. She was prepped and draped in dorsal supine position with a leftward tilt. This was done after spinal anesthetic was applied. A low-transverse skin incision was made and carried down till of the fascia with the knife. The fascial incision was made with the knife. The fascial incision was extended laterally with Grubbs scissors. The fascia was tented upward superiorly and inferiorly the rectus muscles were dissected off bluntly. The rectus muscles were the midline. The preperitoneal fat and peritoneum were dissected open bluntly at the superior aspect of the rectus muscles. The peritoneal incision was extended superior and inferior with good position of bladder. The uterine incision was made with a scalpel down to the level of the amniotic cavity. The amniotic cavity was entered bluntly. The was delivered. The cord was clamped and cut and the infant was handed off to waiting pediatric staff. Cord bloods were obtained. The placenta was removed manually. The uterus was exteriorized. The uterus was cleared of all clots, debris and membranes. The uterus was closed in 0 Vicryl running lock fashion. An imbricating over a was placed along the incision line as well. Each fallopian tube was grasped and raised with a [place]. With from the underlying venous structures. The mesosalpinx between the tube and the rest the adnexa was cauterized and transected with LigaSure cautery. It was performed from the distal tube near the ovary in a stepwise fashion towards the cornua. The tube at the cornua was cauterized transected with LigaSure cautery. This was performed in a bilateral fashion. The uterus was returned to the abdomen. The gutters were cleared of all clots and debris. The fascia was closed with 0 Vicryl running fashion. The subcutaneous tissue was irrigated pinpoint bleeders were cauterized. The skin was closed with subcuticular absorbable wen. The skin incision line was covered with glue. The patient tolerated the procedure well. She has taken recovery room in stable condition. Sponge lap and needle counts were correct x2. Estimated Blood Loss 665 Pathology none sent Complications No immediate complications Condition stable Disposition PACU
[2021-06-26] MEDS: LACTATED RINGERS 1,000 ML 999 ML IV CONT (08:21)
[2021-06-26] MEDS: OXYTOCIN 30 UNITS/NS 500 ML 30 UNITS/500 ML BAG 125 UNITS IV CONT (08:44)
[2021-06-26] MEDS: MORPHINE SULFATE INJ (*CRX) 10 MG/ML AMP 3 MG IV PUSH ×3 (09:50→10:04)
[2021-06-26] MEDS: HYDROcodone/acetaminophen (*CRX) 5-325 MG TABLET 1 TAB PO ×2 (10:56→20:18)
--- NOTE | 2021-06-26 11:08 | OBPPTRN ---
1014 Patient transferred to post room #282 via stretcher. Support person present. Oriented to unit, room, information board, rooming in, admission packet and security measures. Patient verbalizes understanding.
--- NOTE | 2021-06-26 11:54 | P.HPUP_ITS ---
History and Physical Update Update Date/Time: 06/26/21 11:54 to perform salpingectomy bilaterally Intraoperati vely after the delivery. History and Physical has been reviewed, including an updated exam of the patient. There are NO changes in the patient's condition. Risks, benefits, and alternatives have been discussed and questions answered. Patient agrees to proceed with procedure.
[2021-06-26] MEDS: ONDANSETRON INJ 4 MG/2 ML VIAL IV PUSH (12:48)
[2021-06-26] MEDS: HYDROcodone/acetaminophen (*CRX) 10-325 MG TABLET 1 TAB PO ×2 (12:59→18:27)
[2021-06-26] MEDS: DEXTROSE 5%/0.45% SOD CHL 1,000 ML 125 ML IV CONT (13:29)
[2021-06-26] MEDS: IBUPROFEN 600 MG TABLET PO (20:19)
[2021-06-27 00:16] VITALS: BP 102/55; PULSE 65; RESP 16; TEMP 36.9
[2021-06-27] MEDS: HYDROcodone/acetaminophen (*CRX) 10-325 MG TABLET 1 TAB PO ×7 (00:16→22:38)
[2021-06-27] MEDS: IBUPROFEN 600 MG TABLET PO ×3 (04:17→19:00)
[2021-06-27 04:30] VITALS: BP 99/65; PULSE 78; RESP 16; TEMP 36.6
[2021-06-27 05:32] LABS: Basophils Percent Auto 0.2 % (0.2-1.2); Eosinophils Absolute Auto 0.1 K/mm3 (0-0.3); Eosinophils Percent Auto 0.9 % (0-4.4); Hematocrit 26.9 % (37.0-47.0); Hemoglobin 9.1 g/dL (12.0-15.0); Immature Granulocyte Percent A 0.9 % (0-0.5); Lymphocytes Absolute Auto 1.33 K/mm3 (0.9-3.2); Lymphocytes Percent Auto 11.4 % (18.3-44.2); Mean Corpuscular HGB Conc 33.8 g/dl (32-36); Mean Corpuscular Hemoglobin 33.7 pg (26-34); Mean Corpuscular Volume 99.6 fl (80-100); Mean Platelet Volume 12.7 fl (7.4-10.4); Monocytes Absolute Auto 0.7 K/mm3 (0.1-0.6); Monocytes Percent Auto 5.7 % (2.6-8.5); Neutrophils Absolute Auto 9.4 K/mm3 (1.3-6.7); Neutrophils Percent Auto 80.9 % (45.5-73.1); Platelet Count Result 124 k/mm3 (150-375); Red Cell Distribution Width 13.6 % (11.5-14.5); White Blood Count 11.6 K/mm3 (4.5-10.0)
[2021-06-27 07:40] VITALS: BP 108/60; PULSE 86; RESP 16; TEMP 36.9; O2SAT 98
--- NOTE | 2021-06-27 08:01 | P.PNOB_ITS ---
OB - PN: Subj Subjective Date/time seen: 06/27/21 08:01 Patient comments: no complaints baby status: NICU feeding status: pumping and storing Narrative: POD 1 from primary CS. Doing well. Normal lochia. Eating, ambulating, su out. Reports no pain from left labia where I was told by Dr Pedraza she may have an abscess. OB - PN: Obj Data Labs CBC & Chem 7: 06/27/21 04:16 Labs: Laboratory Results - last 24 hr 06/27/21 06/27/21 04:16 04:16 WBC 11.6 H RBC 2.70 L Hgb 9.1 L Hct 26.9 L MCV 99.6 MCH 33.7 MCHC 33.8 RDW 13.6 Plt Count 124 L MPV 12.7 H Immature Gran % (Auto) 0.9 H Neut % (Auto) 80.9 H Lymph % (Auto) 11.4 L [place] % (Auto) 5.7 Eos % (Auto) 0.9 Baso % (Auto) 0.2 Lymph # (Auto) 1.33 [place] # (Auto) 0.7 H Eos # (Auto) 0.1 Baso # (Auto) 0.0 Abs Immat Gran (auto) 0.10 H Absolute Neuts (auto) 9.4 H Absolute Nucleated RBC 0.0 Nucleated RBC % 0.0 Blood Type A Negative Antibody Screen Negative OB - PN A/P Assessment and Plan (1) delivery delivered: Code(s): O82 - Encounter for delivery without indication Status: Acute Plan day: 1 Plan: routine care Comments: routine post op care continue to observe left labia- seems more like cyst than abscess today. will monitor for need to drain. Time Spent With Patient Time: Total time spent is greater than 50% in coordination of care (as documented) at patient's floor/unit and/or counseling patient: Exam Narrative: NAD abdomen soft, appropriately tender, incision bandaged Extremities nontender with 1+ edema left vulva with 3x3cm cystic area, nontender, no induration, mild erythema, is not taut
[2021-06-27] MEDS: MULTIVIT/MIN/PREN/FOL AC/IRON TABLET 1 TAB PO (08:20)
[2021-06-27] MEDS: POLYSACCHARIDE IRON COMPLEX 150 MG CAPSULE PO ×2 (08:20→15:06)
[2021-06-27] MEDS: DOCUSATE SODIUM 100 MG CAPSULE PO ×2 (08:20→15:06)
[2021-06-27] MEDS: SIMETHICONE 80 MG TAB.CHEW PO (08:20)
--- NOTE | 2021-06-27 10:13 | PC.NURSE ---
0834 - Reported to RN that mother is like a champ . Mom has no complaints. 0915 - Mom states she is with no pain. Infant is latching soon, RN to assess latching. 0917 - Infant is latched to left breast while mom holds her cell phone. Latch is less than 90 degrees, piston motion and positioned with nose buried into the breast and chin away from the breast. Mom demonstrates understanding of detaching from the breast and nipple is misshaped. RN encouraged mom to set down her phone and work on positioning and latch. Repeated teaching nipple to nose, latch and positioning for effective latch and good milk transfer. Mom states baby comes off the breast fussy and has been on/off for the last two hours. Mom puts to breast several attempts ineffectively. Reinforced teaching above and mom states she breastfed her other child for two years. RN encouraged mother with the differences of teaching a to effectively latch vs a toddler eating. Mom effectively latched infant to left breast using cross cradle, then switched to cradle and back to positioning with nose buried and chin away from the breast. Reinforced teaching nipple care and positioning. Mom voiced understanding of watching for feeding cues to breastfeed 8-12 times in 24 hours and to call out if baby doesn't latch or latch is uncomfortable. Reported to primary RN.
--- NOTE | 2021-06-27 12:45 | WPDANLDPN2 ---
Anes-Prog Note L&D Date/Time: 06/27/21 12:45 Comfortable throughout: section Neuraxial method: spinal Epidural/Spinal procedure site: clean & non-tender Neuro status: Neuro function grossly intact. Cardiovascular status: normal Respiratory status: normal Airway patency: baseline Mental status: baseline Post-Op hydration status: normal Vital Signs: Last Vital Signs Temp 36.9 C 06/27/21 07:40 Pulse 86 06/27/21 07:40 Resp 16 06/27/21 07:40 BP 108/60 06/27/21 07:40 Pulse Ox 98 06/27/21 07:40 Pain score (VAS): 06/05 I/O: Intake & Output 06/26/21 06/27/21 06/27/21 23:59 07:59 15:59 Intake Total 1650 1050 Output Total 250 3000 Balance 1400 -1950 Post-procedural complaints: none Patient feedback: Patient satisfied with anesthetic care.
--- NOTE | 2021-06-27 12:46 | WPDANLDNPN2 ---
Anes-Prog Note L&D-Neuraxial Date/Time: 06/27/21 12:46 Neuraxial medications: intrathecal PF morphine Opiod-related complaints: none Patient feedback: Patient satisfied with post-operative pain management.
[2021-06-27] MEDS: RHO(D) IMMUNE GLOBULIN 300 MCG/2 ML SYRINGE IM (16:21)
[2021-06-27 19:00] VITALS: BP 102/62; PULSE 85; RESP 16; TEMP 36.8
[2021-06-28] MEDS: IBUPROFEN 600 MG TABLET PO ×2 (05:18→11:30)
[2021-06-28] MEDS: HYDROcodone/acetaminophen (*CRX) 10-325 MG TABLET 1 TAB PO ×2 (05:18→09:33)
--- NOTE | 2021-06-28 07:20 | PC.NURSE ---
PT introductions made and plan of care discussed per post op c section, pain managememt, daily care activities, breast feeding. PT and spouse both received information. No barriers to learning identified. PT received such instructions per one to one discussion, mom baby care guide and demonstrations. PT verbalized understanding of such care.
--- NOTE | 2021-06-28 07:58 | PM.OBPNVD ---
OB - PN: Subj Subjective Date/time seen: 06/28/21 07:58 Patient comments: no complaints and pain well controlled baby status: doing well and nursing well Narrative: would like DC home today. OB - PN: Obj Data Labs CBC & Chem 7: 06/27/21 04:16 Labs: Laboratory Results - last 24 hr 06/27/21 04:16 Blood Type A Negative Antibody Screen Negative Screen Negative Baby's Blood Type A pos Baby's GEORGE Negative Doses of RhIg Required 1 OB - PN A/P Assessment and Plan (1) delivery delivered: Code(s): O82 - Encounter for delivery without indication Status: Acute Plan day: 2 Plan: routine care and discharge home Time Spent With Patient Time: Total time spent is greater than 50% in coordination of care (as documented) at patient's floor/unit and/or counseling patient: Exam Narrative: NAD abdomen soft, appropriately tender, incision CDI Extremities nontender with 1+ edema
--- NOTE | 2021-06-28 08:11 | PM.DS ---
DS: Admitting Diagnosis Discharge Date 06/28/21 Admitting Diagnosis term IUP, prior 3rd degree laceration DS: Discharge Diagnosis Discharge Diagnosis (1) delivery delivered: Code(s): O82 - Encounter for delivery without indication Status: Acute DS: Summary Hospital Course Hospital Course: She had an uncomplicated section and post course. Status at Discharge Functional status at discharge: independent ambulation Time Spent with Patient Time attestation: Total time spent providing and/or coordinating discharge services: Exam Narrative: NAD abdomen soft, appropriately tender Ext non tender, 1+ edema DS: Data Data Completed and Pending Pending studies at discharge: Pending at discharge 06/26/21 07:29 Surgical [PTH] Routine Labs on day of discharge: Labs from last 24 hours 06/27/21 04:16 Blood Type A Negative Antibody Screen Negative Screen Negative Baby's Blood Type A pos Baby's GEORGE Negative Doses of RhIg Required 1 Discharge Plan Discharge Attending physician on discharge: Clarisa Gill Discharging Clinician: Clarisa Gill Anticipated Discharge Date/Time: 06/28/21 08:01 Patient Disposition: Home, Self-Care Activity: may drive after 2 weeks and pelvic rest Diet: regular Patient Instructions: Antibiotic Form Stand Alone Forms: General Discharge Information Follow-up/Referrals: Clarisa Gill MD [Physician] - 1 Week Discharge Medications: New hydrocodone-acetaminophen 5-325 mg Tablet 1 tablet PO Q4-5H PRN (Reason: Moderate Pain (4-6)) Qty: 30 RF: 0 docusate sodium 100 mg Capsule 100 mg PO BID Qty: 60 RF: 0 ibuprofen 600 mg Tablet 600 mg PO Q6H PRN (Reason: Cramping) Qty: 60 RF: 0 Continued Daily [phone] mg-mcg-mg Combo Pack 1 pkg PO DAILY RF: 0 Discontinued valacyclovir [Valtrex] 500 mg Tablet 500 mg PO DAILY RF: 0 Date of admission: 06/26/21 04:56 Primary Care Provider: NateLori Admitting Provider: Cathi Pedraza Attending physician on admission: Cathi Pedraza Condition: Stable
[2021-06-28 08:55] VITALS: BP 125/60; PULSE 95; RESP 16; TEMP 36.6; O2SAT 99
[2021-06-28 09:30] VITALS: PULSE 95; RESP 16; O2SAT 99
[2021-06-28] MEDS: POLYSACCHARIDE IRON COMPLEX 150 MG CAPSULE PO (09:33)
[2021-06-28] MEDS: SIMETHICONE 80 MG TAB.CHEW PO (09:33)
[2021-06-28] MEDS: MULTIVIT/MIN/PREN/FOL AC/IRON TABLET 1 TAB PO (09:33)
[2021-06-28] MEDS: DOCUSATE SODIUM 100 MG CAPSULE PO (09:33)
[2021-06-28] MEDS: LANOLIN (LANSINOH) 7.5 GM CREAM 1 APPLIC TOPICAL (09:34)
--- NOTE | 2021-06-28 11:00 | PC.NURSE ---
PT received discharge instructions per protocol and verbalized understanding of such care.
--- NOTE | 2021-06-28 13:30 | PC.NURSE ---
3688 - Mother led the conversation with regards to her experience feeding her baby so far. Reminded parents to use good handwashing to prevent infection. has had 12-14 feedings in the past 24 hours and meets the outcomes for weight, output and jaundice. Mother states she feels confident to continue effectively her at home. Reviewed production of human milk, transition of milk, signs of adequate intake and engorgement prevention/relief and when to call the care provider using the mom and baby guide. Reviewed medications and smoking mother is taking with information provided by [facility], community resources and outpatient services as listed in the mom and baby guide/[facility] website. Reinforced watching for feeding cues with responsive feeding and how to stimulate to initiate feeding three hours from the start of the last feeding. Mother states she is without discomfort. Mother voiced understanding of information shared. Reported to primary RN.
[2021-06-30 10:21] VITALS: BP 114/73; PULSE 96; RESP 20; TEMP 36.8; O2SAT 100
== END 2021-06-28 11:55 | disposition home or self-care (01) | DRG 540 ==
LOC: ANHOB2 06-28 08:12 → ANHLDR 06-29 10:02 → ANHOB2 06-29 10:02
PROVIDERS: Admitting Provider Obstetrics & Gynecology; PCP Physician Assistant; Visit Provider Obstetrics & Gynecology
PROC: 10D00Z1 Extraction of Products of Conception, Low, Open Approach (ICD-10-PCS; CPT 59514; principal; 2021-06-26 07:30)
DX: O99.892 Other specified diseases and conditions complicating childbirth (principal); Z37.0 Single live birth; Z3A.39 39 weeks gestation of pregnancy; Z87.59 Personal history of other complications of pregnancy, childbirth and the puerperium; O36.8330 Maternal care for abnormalities of the fetal heart rate or rhythm, third trimester, not applicable or unspecified; O69.81X0 Labor and delivery complicated by cord around neck, without compression, not applicable or unspecified; Z30.2 Encounter for sterilization; O99.354 Diseases of the nervous system complicating childbirth; G35 Multiple sclerosis; O99.334 Smoking (tobacco) complicating childbirth; F17.210 Nicotine dependence, cigarettes, uncomplicated
CPT/HCPCS: 36415; 85025; 85461; 88302; 90384; A9270; J0131; J0690; J2270; J2274; J2370; J2405; J2590; J2790; J7120

== ENCOUNTER 2022-01-22 18:57 | Emergency (ER) | payer OTHER, SELFPAY ==
[2022-01-22 19:06] VITALS: BP 127/90; PULSE 87; RESP 18; TEMP 36.6; O2SAT 99
--- NOTE | 2022-01-22 21:28 | ED.EXTPRO ---
HPI - Extremity Problem General Chief complaint: Extremity Problem,Nontraumatic Stated complaint: RIGHT ARM/LEG NUMBNESS-HAS MS Time Seen by Provider: 01/22/22 20:58 Source: patient Mode of arrival: ambulatory Limitations: no limitations History of Present Illness HPI Narrative: Patient is 36 years old white female, history of multiple sclerosis diagnosed 2020, drove herself to the emergency room, complaining of intermittent numbness of the right upper extremity associated with difficulty to get words out and usually last between 10 and 15 seconds each time. Patient denies any specific aggravating factors. She denies any fever, chills, nausea, vomiting, headache, chest pain, shortness of breath. Related Data Home Medications Medication Instructions Recorded Confirmed vits 75-iron 28 mg-folic 1 pkg PO DAILY 06/26/21 06/26/21 acid 800 mcg-omega3 440 mg oral pack Allergies Allergy/AdvReac Type Severity Reaction Status Date / Time No Known Allergies Allergy Unverified 11/10/20 21:31 Review of Systems Review of Systems: All systems reviewed & are unremarkable except as noted in HPI and below PMFSH Past Medical History Medical History Multiple sclerosis and not yet delivered Smoker Surgical History Surgical History No pertinent past surgical history Previous section Family History Family History Grandparent Hypertension Grandparent Diabetes mellitus Ovarian cancer Father Alcohol abuse Mother Brain aneurysm Other Parents Social History Social History Smoking packs per day: 0.5 Smoking cigarettes per day: 10.0 Years smoked: 16 Smoking pack-years: 8.00 Smoking status: Current every day smoker Tobacco type: cigarettes Second hand tobacco smoke exposure: Yes Substance use: never Gender identity (if verbalized by the patient): Female Sexual Orientation (if Verbalized by the Patient): Straight or Heterosexual Spiritual care concerns: No Exam Narrative: General appearance: Well-developed, well-nourished Skin: Normal color Head: Normocephalic, nontraumatic Eyes: Clear conjunctiva ENT: Oropharynx normal, ears normal, nose normal Neck: Supple, nontender Chest and respiratory: Airway patent, no respiratory distress, no accessory muscle use Heart: Regular rate/rhythm Abdomen: Soft, nontender, no organomegaly, quiet bowel sounds Vascular: Normal peripheral pulses, normal capillary refill. Musculoskeletal: Normal range of motion, nontender back Neurologic: Alert and oriented ?3, GUIDEMAN is normal as tested, no gross motor deficit Course Reevaluation(s) Reevaluation #1: Patient drove herself to the emergency room with her 6-month-old child, she is telling me that her boyfriend could not come with her because he was so tired. 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 She is telling me that she have to go back home to drop the baby off and then will drive herself to [facility] emergency room. Date: 01/22/22 Time: 21:51 Consultations Consultation #1: DR ECKERT, neurologist at [facility], requested to send patient to the emergency room for MRI of the brain stat. She does not believe that the patient have flareup of multiple sclerosis at this time. Date: 01/22/22 Time: 21:46 Consultation #2: DR WOOD The emergency room at [facility] who accepted patient transfer Vital Signs Vital signs: Vital Signs Temperature 36.6 C 01/22/22 19:06 Pulse Rate 87
== END 2022-01-22 22:10 | disposition left against medical advice (07) ==
PROVIDERS: Emergency Provider Emergency Medicine; PCP Physician Assistant
DX: G35 Multiple sclerosis (principal); R20.2 Paresthesia of skin; F17.210 Nicotine dependence, cigarettes, uncomplicated
CPT/HCPCS: 99281